=== PATIENT | male | born 1960 | race Caucasian/White ===

== ENCOUNTER → 2017-08-09 | Outpatient (REF) | payer OTHER ==
[2017-08-09 14:20] LABS: FERRITIN 209 NG/ML (26-388); PERCENT SATURATION 12.8 % (19.7-50.0); TOTAL IRON BINDING CAPACITY 305 UG/DL (250-450)
[2017-08-09 14:23] LABS: FOLATE > 24.0 NG/ML
[2017-08-09 14:24] LABS: VITAMIN B12 LEVEL 845 PG/ML
[2017-08-12 00:08] LABS: HEMOGLOBIN A 94.5 % (94.0-98.0); HEMOGLOBIN F (FETAL) 0.5 % (0.0-2.0)
== END ==
LOC: M LAB REF 13:05
PROVIDERS: ATTEND Internal Medicine Nephrology
DX: D64.9 Anemia, unspecified (principal); D56.9 Thalassemia, unspecified

== ENCOUNTER → 2017-08-14 | Outpatient (CLI) | payer OTHER ==
--- NOTE | 2017-08-15 06:58 | REP ---
Clinical: Chronic renal disease stage II. Technique: Real time leahy scale ultrasound examination using curved array transducer. Findings: The kidneys are normal in contour, size, echogenicity demonstrating increased central sinus fat which is consistent with chronic medical renal disease. No hydronephrosis, nephrolithiasis, or renal mass lesion is appreciated. The right kidney measures 12.8 x 5.5 x 5.2 cm without cystic changes. The left kidney measures 13.5 x 5.7 x 5.6 cm and includes few small cysts up to 12 mm. The bladder is collapsed and grossly unremarkable. Impression: Findings compatible with chronic medical renal disease. Few small left renal cysts up to 12 mm. Signed by Leoncio Quiñones MD 08/15/2017 06:50 A
== END ==
LOC: M RAD 13:16
PROVIDERS: ATTEND Internal Medicine Nephrology
DX: N18.2 Chronic kidney disease, stage 2 (mild) (principal); M06.9 Rheumatoid arthritis, unspecified; N28.1 Cyst of kidney, acquired